=== PATIENT | male | born 1980 | race African-American/Black ===

== ENCOUNTER 2019-07-15 08:17 | Emergency (ER) | payer MEDICAID ==
[~2019-07-15] VITALS: Ht 175.3 cm; Wt 85.0 kg
[2019-07-15] MEDS ORDERED: SODIUM CHLORIDE 0.9% 1,000 ML IV ONE (09:03)
[2019-07-15 09:36] LABS: BASOPHILS % 0.9 % (0.0-2.0); HEMATOCRIT. 41.1 % (42.0-52.0); HEMOGLOBIN. 13.8 g/dL (14.0-18.0); LYMPHOCYTES % 31.3 % (20.0-50.0); MEAN CORPUSCULAR HEMOGLOBIN 27.3 pg (28.0-32.0); MEAN CORPUSCULAR VOLUME 81.5 fL (80.0-94.0); MONOCYTES % 11.9 % (2.0-8.0); NEUTROPHILS % 49.9 % (40.0-76.0); PLATELET 191 x1000/uL (130-400); RED BLOOD CELL COUNT 5.05 mill/uL (4.7-6.1); RED CELL DISTRIBUTION WIDTH 14.5 % (11.6-14.6)
[2019-07-15 09:39] LABS: CHLORIDE 113 mEq/L (98-107)
[2019-07-15 09:44] LABS: ETHANOL BLOOD < 10 mg/dL
[2019-07-15 11:54] LABS: *BARBITURATES SCREEN URINE NEGATIVE (NEGATIVE); *BENZODIAZEPINES SCREEN URINE NEGATIVE (NEGATIVE)
[2019-07-15 11:55] LABS: *AMPHETAMINES SCREEN URINE PRESUMTIVE POSITIVE (NEGATIVE); *COCAINE SCREEN URINE NEGATIVE (NEGATIVE); CANNABINOID URINE SCREEN PRESUMTIVE POSITIVE (NEGATIVE); METHADONE URINE SCREEN NEGATIVE (NEGATIVE); OPIATES URINE SCREEN NEGATIVE (NEGATIVE); PHENCYCLIDINE URINE SCREEN NEGATIVE (NEGATIVE)
[2019-07-15] MEDS ORDERED: NALOXONE HCL 0.4 MG/ML 1ML VIAL IV ONE (13:45)
[2019-07-15 14:16] VITALS: BP 120/62
== END 2019-07-15 14:17 | disposition home or self-care (01) ==
LOC: ER 08:48
DX: F19.10 Other psychoactive substance abuse, uncomplicated (principal); R41.82 Altered mental status, unspecified; R53.83 Other fatigue
CPT/HCPCS: 36415; 71045; 80053; 80305; 80307; 80320; 80329; 85025; 99285; J7030; Z7610; G0480

== ENCOUNTER 2020-08-14 03:00 | Emergency (ER) | payer SELFPAY ==
[~2020-08-14] VITALS: Ht 177.8 cm; Wt 82.0 kg
[2020-08-14 04:00] VITALS: BP 127/77
[2020-08-14] MEDS ORDERED: CEPH500C2 MT (04:02)
[2020-08-14] MEDS ORDERED: SULF1TAB48 MT (04:02)
== END 2020-08-14 04:08 | disposition home or self-care (01) ==
LOC: ER 03:00
DX: I87.2 Venous insufficiency (chronic) (peripheral) (principal); M79.662 Pain in left lower leg; M79.661 Pain in right lower leg; R44.1 Visual hallucinations; F17.200 Nicotine dependence, unspecified, uncomplicated; F19.10 Other psychoactive substance abuse, uncomplicated; Z98.890 Other specified postprocedural states; Z79.899 Other long term (current) drug therapy
CPT/HCPCS: 99283